=== PATIENT | female | born 1970 | race American Indian/Alaskan Native ===

== ENCOUNTER 2017-12-30 16:54 | Emergency (ER) | payer MEDICAID ==
[2017-12-30] MEDS ORDERED: ASPIRIN PO ONE (17:17)
[2017-12-30 17:42] LABS: Basophils % (Auto) 0.5 % (0.0-1.8); Eosinophils # (Auto) 0.1 K/mm3 (0.0-0.4); Eosinophils % (Auto) 1.2 % (0.0-4.3); Hematocrit 33.1 % (30.3-42.9); Hemoglobin 10.4 gm/dl (10.1-14.3); Lymphocytes # (Auto) 1.9 K/mm3 (1.2-5.4); Lymphocytes % (Auto) 29.9 % (13.4-35.0); Mean Corpuscular HGB Conc 32 % (30-34); Monocytes # (Auto) 0.5 K/mm3 (0.0-0.8); Monocytes % (Auto) 7.1 % (0.0-7.3); Platelet Count 332 K/mm3 (140-440); Red Blood Count 4.98 M/mm3 (3.65-5.03)
[2017-12-30] MEDS ORDERED: CATAPRES PO ONE ×2 (17:42→21:39)
[2017-12-30 17:43] LABS: Mean Corpuscular Hemoglobin 21 pg (28-32); Mean Corpuscular Volume 67 fl (79-97); Red Cell Distribution Width 20.3 % (13.2-15.2)
[2017-12-30 17:48] LABS: BUN/Creatinine Ratio 14; Blood Urea Nitrogen 10 mg/dL (7-17); Calcium 9.2 mg/dL (8.4-10.2); Hemolysis Index 0
[2017-12-30] MEDS ORDERED: TORADOL IM ONE (21:40)
--- NOTE | 2017-12-30 22:45 | Emergency Department Report ---
HPI - General Chief Complaint: High BP Time Seen by Provider: 12/30/17 20:15 - HPI HPI: The patient is a 47-year-old female who presents for evaluation of right shoulder pain and low back pain. The patient reports right shoulder and low back pain for the past 5 months, on and off, recurrent for the past one day. She states that she has a spasm pain since performing a physical H&H of one day ago. She states that her pain is currently moderate in severity, aching in quality, exacerbated with movement, improved at rest. The patient denies blunt trauma to the right shoulder or back, fever, saddle anesthesia, paresthesias in the arms or legs, numbness or tingling in the legs, leg weakness, urine or bowel incontinence or retention, difficulty ambulating, or other focal neurological deficits. ED Past Medical Hx - Past Medical History Hx Hypertension: Yes Hx Congestive Heart Failure: Yes Hx Diabetes: Yes Hx COPD: Yes Additional medical history: TIA, sleep anea, acid reflux - Surgical History Past Surgical History?: Yes Hx Cholecystectomy: Yes - Social History Smoking Status: Never Smoker Substance Use Type: None ED Review of Systems ROS: Stated complaint: LOWER BACK PAIN Other details as noted in HPI Constitutional: denies: fever ENT: denies: throat or neck pain Respiratory: denies: cough, shortness of breath Cardiovascular: denies: chest pain Endocrine: denies unexplained weight loss or gain Gastrointestinal: denies: abdominal pain, nausea Genitourinary: denies: dysuria Musculoskeletal: reports right shoulder and low back pain Skin: denies: rash Neurological: denies: headache Hematological/Lymphatic: denies: easy bleeding or easy bruising Psych: denies sadness or hopelessness Physical Exam - Physical Exam Vital Signs: Vital Signs 12/30/17 12/30/17 12/30/17 17:11 17:48 18:49 Temperature 98.2 F Pulse Rate 83 83 83 Respiratory 16 16 Rate Blood Pressure 246/94 246/94 Blood Pressure 207/100 [Left] O2 Sat by Pulse 99 95 Oximetry 12/30/17 12/30/17 12/30/17 19:07 20:10 21:59 Temperature 98.2 F Pulse Rate 78 80 76 Respiratory 16 Rate Blood Pressure 189/99 Blood Pressure 179/68 190/79 [Left] O2 Sat by Pulse 100 Oximetry Physical Exam: General: well-nourished, well-developed, no acute distress Head: Normocephalic, atraumatic Eyes: normal sclera ENT: Mucous membranes are pink and moist Neck: trachea midline, neck supple, No neck stiffness, no cervical adenopathy Respiratory: Breath sounds equal bilaterally, no wheezing, rales, or rhonchi Cardio: S1 and S2 present, no murmurs, rubs, gallops, capillary refill is brisk Abdomen: Normoactive bowel sounds, soft abdomen, no tenderness Musc: Tenderness to palpation present to right lower paraspinal musculature, and right anterior shoulder, pain in the right shoulder is elicited with abduction of the right arm at the shoulder joint, normal passive range of motion to the right shoulder fully intact, normal active range of motion at the hip intact bilaterally, no spinous step-off or obvious deformity, ipsi-lateral and contralateral straight leg raise tests are negative. On extremity testing, compartments are soft and pliable, no obvious gross motor strength deficit, 5+ motor strength, including extension of the great toe bilaterally, no muscular atrophy, spasticity, fasciculations, or clonus, no obvious gross sensation deficit including web space between 1st and 2nd toes, reflexes 2+ & symmetric on DTR testing at the knee and ankle joints, distal pulses intact. Skin: No rash Neuro: no facial drooping, normal speech Psych: Normal affect ED Course Vital Signs 12/30/17 12/30/17 12/30/17 17:11 17:48 18:49 Temperature 98.2 F Pulse Rate 83 83 83 Respiratory 16 16 Rate Blood Pressure 246/94 246/94 Blood Pressure 207/100 [Left] O2 Sat by Pulse 99 95 Oximetry 12/30/17 12/30/17 12/30/17 19:07 20:10 21:59 Temperature 98.2 F Pulse Rate 78 80 76 Respiratory 16 Rate Blood Pressure 189/99 Blood Pressure 179/68 190/79 [Left] O2 Sat by Pulse 100 Oximetry ED Medical Decision Making - Lab Data Result diagrams: 12/30/17 17:21 12/30/17 17:21 - Medical Decision Making The patient was seen and examined by myself. The patient is placed on a case monitor and continuous pulse ox. On initial evaluation, the patient was found to be in no distress. No findings on exam concerning for cauda equina syndrome, spinal stenosis, or epidural abscess. The patient is given pain medicine. X-ray of the right shoulder and L-spine are negative for acute fracture or dislocation. As the patient has intake range of motion, sensation, motor function, and pulses to the right arm, there is no clinical concern for dislocation. The patient was reevaluated and reported that their pain significantly improved. The patient is stable for discharge with outpatient follow-up. The patient is given follow-up and return instructions. The patient expressed understanding and agreed with the plan. The patient is discharged in stable condition. Critical care attestation.: If time is entered above; I have spent that time in minutes in the direct care of this critically ill patient, excluding procedure time. ED Disposition Clinical Impression: Acute right-sided low back pain without sciatica, Right anterior shoulder pain Disposition: TO HOME OR SELFCARE Is pt being admited?: No Does the pt Need Aspirin: No Instructions: Shoulder Sprain (ED), Low Back Strain (ED) Referrals: PRIMARY MD YOVANY [Primary Care Provider] - 3-5 Days MARTIR MALLORY MD [Staff Physician] - 3-5 Days Time of Disposition: 04:43
--- NOTE | 2017-12-30 23:03 | XRay Report ---
FINAL REPORT EXAM: XR SHOULDER 2+V RT HISTORY: rt shoulder pain TECHNIQUE: 5 views of the right shoulder PRIORS: None. FINDINGS: Suboptimal positioning makes it difficult evaluated glenohumeral joint but there appears to be malalignment, possibly posterior subluxation of the humerus with respect to the glenoid. The acromioclavicular joint is normally aligned. There is no evidence of acute fracture. The soft tissues are unremarkable. IMPRESSION: Question posterior subluxation of the glenohumeral joint. Recommend further evaluation with CT.
--- NOTE | 2017-12-30 23:09 | XRay Report ---
FINAL REPORT EXAM: XR SPINE LUMBOSACRAL 2-3V HISTORY: rt lower back pain TECHNIQUE: 3 views of the lumbar spine PRIORS: None. FINDINGS: The lumbar vertebral bodies are normal in height. Vertebral alignment is normal. There is mild multilevel endplate osteophyte formation. Otherwise, the disc spaces are well preserved. There is a small sclerotic focus in the anterior superior L1 endplate most likely representing a bone island. There is a 7 cm calcified mass in the pelvis consistent with a calcified uterine fibroid. IMPRESSION: Mild multilevel degenerative disc disease 7 cm calcified uterine fibroid
[2017-12-31 04:31] VITALS: BP 146/83
== END 2017-12-31 05:53 | disposition home or self-care (01) ==
LOC: ED 16:54
DX: M25.511 Pain in right shoulder (principal); M54.5 Low back pain; I11.0 Hypertensive heart disease with heart failure; E11.9 Type 2 diabetes mellitus without complications; J44.9 Chronic obstructive pulmonary disease, unspecified; G47.30 Sleep apnea, unspecified; K21.9 Gastro-esophageal reflux disease without esophagitis; Z86.73 Personal history of transient ischemic attack (TIA), and cerebral infarction without residual deficits; Z90.49 Acquired absence of other specified parts of digestive tract
CPT/HCPCS: 36415; 72100; 73030; 80048; 82962; 84484; 85025; 93005; 93010; 96372; 99285; J1885